=== PATIENT | male | born 1975 | race Hispanic/Latino ===

== ENCOUNTER 2020-02-05 20:59 | Inpatient (IN) | payer OTHER ==
[~2020-02-05] VITALS: Ht 172.7 cm; Wt 76.2 kg
[~2020-02-05 20:59] MED LIST: Aspirin PO; HYDR-2132 PO; METF-446 PO
[2020-02-05 21:33] LABS: BASOPHILS % (AUTO) 0.6 % (0.0-5.0); EOSINOPHILS % (AUTO) 1.9 % (0.0-8.0); HEMATOCRIT 41.9 % (42-54); LYMPHOCYTES % (AUTO) 26.5 % (21.0-51.0); MEAN CORPUSCULAR HEMOGLOBIN 32.5 pg (27.0-33.0); MEAN CORPUSCULAR HGB CONC 35.6 g/dL (32.0-36.0); MEAN CORPUSCULAR VOLUME 91.3 fL (79-99); MONOCYTES % (AUTO) 9.9 % (3.0-13.0); NEUTROPHILS % (AUTO) 60.7 % (40.0-77.0); PLATELET COUNT (AUTO) 275 K/uL (130-400); RED BLOOD CELL COUNT(AUTO) 4.59 MIL/uL (4.50-6.20); RED CELL DISTRIBUTION WIDTH 11.6 % (11.0-15.5); WHITE BLOOD COUNT (AUTO) 4.9 K/uL (4.8-10.8)
[2020-02-05] MEDS ORDERED: SODIUM CHLORIDE 0.9% 1000ML 2,000 ML IV ONE (21:33)
[2020-02-05 21:36] LABS: APPEARANCE,URINE Clear (CLEAR); BILIRUBIN,URINE Negative (NEGATIVE); COLOR,URINE Yellow (YELLOW); GLUCOSE, URINE (UA) >=1000 mg/dL (NEGATIVE); KETONES,URINE Negative (NEGATIVE); LEUKOCYTE ESTERASE ,URINE Negative (NEGATIVE); NITRATE,URINE Negative (NEGATIVE); OCCULT BLOOD,URINE Negative (NEGATIVE); PROTEIN,URINE Negative (NEGATIVE); UROBILINOGEN,URINE 0.2 mg/dL (0.2-1.0)
[2020-02-05 21:38] LABS: ABG OXYGEN SATURATION 86.4 % (95.0-99.0); BASE EXCESS,VENOUS BLOOD GAS -0.8 (-2.0-3.0); HCO3,VENOUS BLOOD GAS 24.5 (21.0-28.0); PCO2,VENOUS BLOOD GAS 42 (35-48); PH,VENOUS BLOOD GAS 7.379 (7.350-7.450)
[2020-02-05 21:45] LABS: AMPHET/METH SCREEN,URINE NEGATIVE (NEGATIVE); BARBITURATE SCREEN, URINE NEGATIVE (NEGATIVE); BENZODIAZEPINES SCREEN,URINE NEGATIVE (NEGATIVE); CANNABINOID SCREEN,URINE POSITIVE (NEGATIVE); COCAINE SCREEN,URINE POSITIVE (NEGATIVE); OPIATE SCREEN,URINE NEGATIVE (NEGATIVE); PHENCYCLIDINE SCREEN,URINE NEGATIVE (NEGATIVE)
[2020-02-05 21:49] LABS: CREATININE 1.3 mg/dL (0.5-1.5); POTASSIUM 4.2 mmol/L (3.5-5.1)
[2020-02-05] MEDS ORDERED: INSULIN HUMULIN R 100 UNIT/ML 3ML ONE (21:49)
[2020-02-05 22:17] LABS: BACTERIA,URINE None Seen /HPF (None Seen); RBC,URINE None Seen /HPF (0-1); WBC,URINE None Seen /HPF (0-1)
[2020-02-05] MEDS ORDERED: HYDRALAZINE HCL 20 MG/ML VIAL IV PRN (22:45)
[2020-02-05] MEDS ORDERED: ONDANSETRON HCL 4 MG/2 ML VIAL IV PRN (22:45)
[2020-02-05] MEDS ORDERED: ACETAMINOPHEN 325 MG TAB PO PRN ×2 (22:45)
[2020-02-05] MEDS ORDERED: LACTULOSE 20 GM/30 ML UDCUP PO PRN (22:45)
[2020-02-05] MEDS: SODIUM CHLORIDE 0.9% 1000ML 1,000 ML IV SCH (23:00)
[2020-02-05 23:30] VITALS: BP 131/86
[2020-02-06 00:26] LABS: ABG BASE EXCESS 0.2 mmol/L (-2.0-3.0); ABG HCO3 24.7 mmol/L (21.0-28.0); ABG OXYGEN SATURATION 97.3 % (95.0-99.0); ABG PCO2 40 mmHg (35-48)
[2020-02-06 04:00] VITALS: BP 122/69
[2020-02-06 04:48] LABS: BASOPHILS % (AUTO) 0.6 % (0.0-5.0); EOSINOPHILS % (AUTO) 4.1 % (0.0-8.0); HEMATOCRIT 37.9 % (42-54); LYMPHOCYTES % (AUTO) 36.2 % (21.0-51.0); MEAN CORPUSCULAR HEMOGLOBIN 32.6 pg (27.0-33.0); MEAN CORPUSCULAR HGB CONC 35.6 g/dL (32.0-36.0); MEAN CORPUSCULAR VOLUME 91.5 fL (79-99); MONOCYTES % (AUTO) 7.8 % (3.0-13.0); NEUTROPHILS % (AUTO) 51.1 % (40.0-77.0); PLATELET COUNT (AUTO) 241 K/uL (130-400); RED BLOOD CELL COUNT(AUTO) 4.14 MIL/uL (4.50-6.20); RED CELL DISTRIBUTION WIDTH 11.6 % (11.0-15.5); WHITE BLOOD COUNT (AUTO) 6.5 K/uL (4.8-10.8)
[2020-02-06 05:12] LABS: POTASSIUM 3.5 mmol/L (3.5-5.1)
[2020-02-06] MEDS ORDERED: GLIM4TAB36 PO (06:01)
[2020-02-06] MEDS ORDERED: SITA100T12 PO (06:01)
[2020-02-06] MEDS ORDERED: INSULIN HUMULIN R 100 UNIT/ML 3ML SQ SCH (07:30)
[2020-02-06] MEDS: FAMOTIDINE 20MG TAB 20 MG TAB PO SCH ×2 (07:56→20:38)
[2020-02-06] MEDS: ENOXAPARIN SODIUM 40 MG/0.4 ML SYRINGE SQ SCH (07:57)
[2020-02-06] MEDS: SODIUM CHLORIDE 0.9% 1000ML 1,000 ML IV SCH ×2 (07:58→14:56)
[2020-02-06 08:14] VITALS: BP 113/73
[2020-02-06] MEDS: INSULIN HUMULIN R 100 UNIT/ML 3ML SQ SCH ×4 (11:10→21:04)
[2020-02-06 12:00] VITALS: BP 115/71
--- NOTE | 2020-02-06 15:10 | NUR ---
INITIAL Patient lives with spouse, Estephania Almanzar, [phone]. No home services. DME: glucometer (no insulin). Patient works full time babysitter. He is independent and drives. PCP is Dr. Toribio Jacob. Pharmacy is [facility] located on [address] [place] [address]. DCP is home. Addendum: 02/06/20 at 1512 by TRACEY MALCOLM SS Amended: Links added.
--- NOTE | 2020-02-06 15:15 | NUR ---
HOSPITALIST DR. TELLES IN TO SEE PATIENT. SPOKE AT LENGTH WITH PATIENT ABOUT HIS DIABETES AND CHANGES THAT NEED TO BE MADE. HE WILL BE ADJUSTING HIS MEDICATIONS AND WILL A [employer] SPEAK WITH HIM ABOUT WHAT FOODS HE CAN EAT AND WHAT TO AVOID. PATIENT WAS IN AGREEMENT WITH CARE PLAN.
[2020-02-06 16:00] VITALS: BP 112/68
[2020-02-06] MEDS: METFORMIN HCL 500 MG TABLET PO SCH (16:40)
[2020-02-06 19:58] VITALS: BP 110/70
[2020-02-06] MEDS ORDERED: INSULIN GLARGINE 100 UNITS/ML 10 ML VIAL SQ SCH (21:00)
[2020-02-06 23:46] VITALS: BP 119/70
[2020-02-07 04:00] VITALS: BP 119/60
[2020-02-07 05:02] LABS: BASOPHILS % (AUTO) 0.3 % (0.0-5.0); EOSINOPHILS % (AUTO) 1.3 % (0.0-8.0); LYMPHOCYTES % (AUTO) 15.5 % (21.0-51.0); MEAN CORPUSCULAR HEMOGLOBIN 32.3 pg (27.0-33.0); MEAN CORPUSCULAR HGB CONC 35.7 g/dL (32.0-36.0); MEAN CORPUSCULAR VOLUME 90.5 fL (79-99); NEUTROPHILS % (AUTO) 76.5 % (40.0-77.0); PLATELET COUNT (AUTO) 226 K/uL (130-400); RED BLOOD CELL COUNT(AUTO) 4.09 MIL/uL (4.50-6.20); RED CELL DISTRIBUTION WIDTH 11.6 % (11.0-15.5); WHITE BLOOD COUNT (AUTO) 9.5 K/uL (4.8-10.8)
[2020-02-07 05:07] LABS: HEMOGLOBIN A1C 10.5 % (4.0-6.0)
[2020-02-07 05:20] LABS: MAGNESIUM 1.8 mg/dL (1.80-2.40); PHOSPHORUS 2.1 mg/dL (2.5-4.9); POTASSIUM 3.9 mmol/L (3.5-5.1); THYROID STIMULATING HORMONE 0.59 uIU/mL (0.36-3.74)
[2020-02-07] MEDS: SODIUM CHLORIDE 0.9% 1000ML 1,000 ML IV SCH ×3 (06:33→14:33)
[2020-02-07] MEDS: INSULIN HUMULIN R 100 UNIT/ML 3ML SQ SCH ×3 (07:20→16:30)
[2020-02-07 08:00] VITALS: BP 137/87
[2020-02-07] MEDS: FAMOTIDINE 20MG TAB 20 MG TAB PO SCH (08:06)
[2020-02-07] MEDS: METFORMIN HCL 500 MG TABLET PO SCH ×2 (08:06→18:31)
[2020-02-07] MEDS: ENOXAPARIN SODIUM 40 MG/0.4 ML SYRINGE SQ SCH (08:07)
[2020-02-07] MEDS ORDERED: GLIMEPIRIDE 2 MG TABLET PO SCH (09:00)
[2020-02-07] MEDS ORDERED: LINAGLIPTIN 5 MG TABLET PO SCH (09:00)
[2020-02-07 11:47] VITALS: BP 107/66
[2020-02-07 16:00] VITALS: BP 117/70
[2020-02-07] MEDS ORDERED: INSU3INS3 SQ (16:48)
--- NOTE | 2020-02-07 18:30 | NUR ---
DISCHARGE INSTRUCTIONS GIVEN , REVIEWED MEDICATIONS , FOLLOW-UP APPOINTMENT , EDUCATION ON INSULIN INJECTION ROTATING SITES AND SIGN TO REPORT TO PHYSICIAN. .IV REMOVED AND PRESSURE HELD TO SITE THEN SITE DRESSED. NO QUESTIONS OR CONCERNS AT THIS , PATIENT TAKING TO ED LOBBY AND LEFT WITH FAMILY FOR HOME.
== END 2020-02-07 18:48 | disposition home or self-care (01) | DRG 638 ==
LOC: EDH 20:59 → EDHIP 22:33 → 4DH 23:51
PROVIDERS: ADMIT Internal Medicine; ATTEND Internal Medicine
DX: E11.00 Type 2 diabetes mellitus with hyperosmolarity without nonketotic hyperglycemic-hyperosmolar coma (NKHHC) (principal); E87.1 Hypo-osmolality and hyponatremia; N17.9 Acute kidney failure, unspecified; E11.65 Type 2 diabetes mellitus with hyperglycemia; E11.22 Type 2 diabetes mellitus with diabetic chronic kidney disease; E86.1 Hypovolemia; F12.90 Cannabis use, unspecified, uncomplicated; F14.90 Cocaine use, unspecified, uncomplicated; N18.9 Chronic kidney disease, unspecified
CPT/HCPCS: 36415; 36600; 80048; 80061; 80305; 81001; 82010; 82435; 82803; 82947; 82948; 83036; 83605; 83735; 84100; 84132; 84295; 84443; 85025; G0378; J1650; J1815; J7030

== ENCOUNTER 2021-12-12 22:34 | Emergency (ER) | payer OTHER, SELFPAY ==
[~2021-12-12] VITALS: Ht 177.8 cm; Wt 83.9 kg
[~2021-12-12 22:34] MED LIST changes: -Aspirin PO; +GLIM4TAB36 PO; -HYDR-2132 PO; +INSU3INS3 SQ; +SITA100T12 PO
[2021-12-12 22:35] VITALS: BP 125/77
[2021-12-12 23:22] LABS: INFLUENZA TYPE A NEGATIVE FOR TYPE A (NEG); INFLUENZA TYPE B NEGATIVE FOR TYPE B (NEG)
[2021-12-12] MEDS ORDERED: NIRM1TAB PO (23:43)
== END 2021-12-12 23:54 | disposition home or self-care (01) ==
LOC: EDH 22:34
DX: U07.1 COVID-19 (principal); E11.9 Type 2 diabetes mellitus without complications; Z79.4 Long term (current) use of insulin
CPT/HCPCS: 71045; 87804 ×2; 87635; 87880; 99284; C9803

== ENCOUNTER 2022-02-06 18:03 | Emergency (ER) | payer OTHER ==
[~2022-02-06] VITALS: Ht 177.8 cm; Wt 78.0 kg
[~2022-02-06 18:03] MED LIST changes: +NIRM1TAB PO
[2022-02-06 18:20] VITALS: BP 135/80
[2022-02-06] MEDS ORDERED: SULF1TAB42 PO (18:41)
[2022-02-06] MEDS: SULFAMETHOX-TMP DS 800/160 TAB ONE (18:49)
[2022-02-06] MEDS ORDERED: SULFAMETHOX-TMP DS 800/160 TAB PO SCH (19:00)
== END 2022-02-06 18:59 | disposition home or self-care (01) ==
LOC: EDH 18:03
DX: L02.411 Cutaneous abscess of right axilla (principal); E11.9 Type 2 diabetes mellitus without complications; Z79.899 Other long term (current) drug therapy; Z79.84 Long term (current) use of oral hypoglycemic drugs; Z98.890 Other specified postprocedural states
CPT/HCPCS: 10061

== ENCOUNTER 2022-08-01 07:19 | Emergency (ER) | payer OTHER ==
[~2022-08-01] VITALS: Ht 177.8 cm; Wt 72.6 kg
[~2022-08-01 07:19] MED LIST changes: +SULF1TAB42 PO
[2022-08-01 08:00] LABS: BASOPHILS % (AUTO) 0.4 % (0.0-5.0); HEMATOCRIT 41.8 % (42-54); LYMPHOCYTES % (AUTO) 9.9 % (21.0-51.0); MEAN CORPUSCULAR HEMOGLOBIN 32.8 pg (27.0-33.0); MEAN CORPUSCULAR HGB CONC 37.1 g/dL (32.0-36.0); MEAN CORPUSCULAR VOLUME 88.6 fL (79-99); MONOCYTES % (AUTO) 9.9 % (3.0-13.0); NEUTROPHILS % (AUTO) 77.4 % (40.0-77.0); PLATELET COUNT (AUTO) 240 K/uL (130-400); RED BLOOD CELL COUNT(AUTO) 4.72 MIL/uL (4.50-6.20); RED CELL DISTRIBUTION WIDTH 11.6 % (11.0-15.5); WHITE BLOOD COUNT (AUTO) 8.4 K/uL (4.8-10.8)
[2022-08-01] MEDS ORDERED: ONDANSETRON 4MG INJ ONE (08:02)
[2022-08-01] MEDS ORDERED: 0.9%NACL 1000ML 1,000 ML IV ONE (08:02)
[2022-08-01 08:07] LABS: POTASSIUM 3.8 mmol/L (3.5-5.1)
[2022-08-01 08:15] LABS: APPEARANCE,URINE CLEAR (CLEAR); BILIRUBIN,URINE SMALL mg/dL (NEGATIVE); COLOR,URINE YELLOW (YELLOW); GLUCOSE, URINE (UA) >=1000 mg/dL (NEGATIVE); KETONES,URINE >=80 mg/dL (NEGATIVE); LEUKOCYTE ESTERASE ,URINE NEGATIVE Leu/uL (NEGATIVE); OCCULT BLOOD,URINE NEGATIVE (NEGATIVE); PROTEIN,URINE NEGATIVE (NEGATIVE); UROBILINOGEN,URINE 0.2 mg/dL (0.2-1.0)
[2022-08-01 08:15] LABS: ALBUMIN 3.5 g/dL (3.5-5.0)
[2022-08-01 08:25] LABS: NITRATE,URINE NEGATIVE (NEGATIVE)
[2022-08-01] MEDS ORDERED: 0.9%NACL 1000ML 2,000 ML IV ONE (08:30)
[2022-08-01] MEDS ORDERED: ONDANSETRON 4MG INJ IVP ONE (08:30)
[2022-08-01 08:33] LABS: RBC,URINE None Seen /HPF (0-1); WBC,URINE None Seen /HPF (0-1)
[2022-08-01 08:34] LABS: BACTERIA,URINE Rare /HPF (None Seen); SQUAMOUS EPITHELIAL CELL,UR 0-2 /HPF (0-2)
[2022-08-01] MEDS ORDERED: ONDA4TAB10 PO (09:35)
[2022-08-01 09:45] VITALS: BP 115/63
== END 2022-08-01 09:50 | disposition home or self-care (01) ==
LOC: EDH 07:19
DX: K52.9 Noninfective gastroenteritis and colitis, unspecified (principal); E11.65 Type 2 diabetes mellitus with hyperglycemia; E86.9 Volume depletion, unspecified; Z20.822 Contact with and (suspected) exposure to COVID-19; Z79.84 Long term (current) use of oral hypoglycemic drugs
CPT/HCPCS: 99283; 96374; 87635; 96361; 80053; 83690; 85025; 87804 ×2; 81001; 36415; C9803; J7030; J2405

== ENCOUNTER 2022-08-15 10:08 | Emergency (ER) | payer OTHER ==
[~2022-08-15] VITALS: Ht 177.8 cm; Wt 72.6 kg
[~2022-08-15 10:08] MED LIST changes: +ONDA4TAB10 PO
[2022-08-15 10:27] LABS: BASOPHILS % (AUTO) 0.5 % (0.0-5.0); EOSINOPHILS % (AUTO) 0.6 % (0.0-8.0); HEMATOCRIT 42.8 % (42-54); LYMPHOCYTES % (AUTO) 17.2 % (21.0-51.0); MEAN CORPUSCULAR HEMOGLOBIN 33.1 pg (27.0-33.0); MEAN CORPUSCULAR HGB CONC 36.7 g/dL (32.0-36.0); MEAN CORPUSCULAR VOLUME 90.1 fL (79-99); MONOCYTES % (AUTO) 5.6 % (3.0-13.0); NEUTROPHILS % (AUTO) 75.6 % (40.0-77.0); PLATELET COUNT (AUTO) 309 K/uL (130-400); RED BLOOD CELL COUNT(AUTO) 4.75 MIL/uL (4.50-6.20); WHITE BLOOD COUNT (AUTO) 8.2 K/uL (4.8-10.8)
[2022-08-15 10:42] LABS: CREATININE 1.2 mg/dL (0.5-1.5); POTASSIUM 4.2 mmol/L (3.5-5.1)
[2022-08-15 10:47] LABS: TOTAL PROTEIN, SERUM 7.7 g/dL (6.0-8.3)
[2022-08-15] MEDS ORDERED: 0.9%NACL 1000ML 1,000 ML IV ONE ×2 (11:00→11:01)
[2022-08-15 11:01] VITALS: BP 123/66
[2022-08-15 11:11] LABS: AMPHET/METH SCREEN,URINE NEGATIVE (NEGATIVE); BARBITURATE SCREEN, URINE NEGATIVE (NEGATIVE); BENZODIAZEPINES SCREEN,URINE NEGATIVE (NEGATIVE); CANNABINOID SCREEN,URINE POSITIVE (NEGATIVE); COCAINE SCREEN,URINE POSITIVE (NEGATIVE); PHENCYCLIDINE SCREEN,URINE NEGATIVE (NEGATIVE)
[2022-08-15 11:19] LABS: APPEARANCE,URINE CLEAR (CLEAR); BILIRUBIN,URINE NEGATIVE (NEGATIVE); COLOR,URINE LIGHT-YELLOW (YELLOW); GLUCOSE, URINE (UA) >=1000 mg/dL (NEGATIVE); KETONES,URINE >=80 mg/dL (NEGATIVE); LEUKOCYTE ESTERASE ,URINE NEGATIVE Leu/uL (NEGATIVE); NITRATE,URINE NEGATIVE (NEGATIVE); OCCULT BLOOD,URINE NEGATIVE (NEGATIVE); PH,URINE 5.5 (5.0-8.0); PROTEIN,URINE NEGATIVE (NEGATIVE); UROBILINOGEN,URINE 0.2 mg/dL (0.2-1.0)
[2022-08-15] MEDS ORDERED: PANT40TA55 PO (11:48)
[2022-08-15 11:51] LABS: BACTERIA,URINE RARE /HPF (None Seen); MUCUS,URINE RARE LPF (None Seen); RBC,URINE 0-1 /HPF (0-1); SQUAMOUS EPITHELIAL CELL,UR RARE /HPF (0-2); WBC,URINE 0-1 /HPF (0-1)
== END 2022-08-15 12:11 | disposition home or self-care (01) ==
LOC: EDH 10:08
DX: F19.10 Other psychoactive substance abuse, uncomplicated (principal); R11.2 Nausea with vomiting, unspecified; Z20.822 Contact with and (suspected) exposure to COVID-19; E11.9 Type 2 diabetes mellitus without complications; Z79.84 Long term (current) use of oral hypoglycemic drugs
CPT/HCPCS: 99283; 96360; 87635; 80053; 80305; 83690; 85025; 87880; 87804 ×2; 36415; 81001; C9803; J7030

== ENCOUNTER → 2023-11-28 | Emergency (ER) | payer BC, OTHER ==
[~2023-11-28] VITALS: Ht 177.8 cm; Wt 63.5 kg
[~2023-11-28] MED LIST changes: +PANT40TA55 PO
[2023-11-28 07:27] VITALS: BP 143/77; PULSE 78; RESP 18
== END ==
LOC: EDH 07:26
DX: S00.522A Blister (nonthermal) of oral cavity, initial encounter (principal); Z53.21 Procedure and treatment not carried out due to patient leaving prior to being seen by health care provider; X58.XXXA Exposure to other specified factors, initial encounter; Y93.9 Activity, unspecified; Y92.89 Other specified places as the place of occurrence of the external cause; Y99.8 Other external cause status